=== PATIENT | male | born 2000 | race Caucasian/White ===

== ENCOUNTER 2021-04-21 15:07 | Emergency (ER) | payer BC ==
[2021-04-21 15:12] VITALS: BP 165/101; PULSE 96; RESP 16; TEMP 98.1
--- NOTE | 2021-04-21 15:41 | ED ---
Abdominal Pain HPI - General Chief Complaint: Abdominal Pain Stated Complaint: Abd pain Time Seen by Provider: 04/21/21 15:15 Source: patient Mode of arrival: ambulatory Limitations: no limitations - History of Present Illness Initial Comments: 21-year-old male presents to emergency department with a chief complaint of umbilical pain. Patient reports the pain has been gradually she severity for about 2 weeks. States he has developed gradual increase in erythema and region. However, he denies any discharge. States he feels a small mass whenever region is palpated. He denies any nausea vomiting diarrhea or constipation. Denies any fevers chills. - Related Data Previous Rx's Medication Instructions Recorded Cephalexin [Keflex] 500 mg PO Q6HR #40 cap 04/21/21 Allergies Allergy/AdvReac Type Severity Reaction Status Date / Time No Known Allergies Allergy Verified 04/21/21 15:12 Review of Systems ROS Statement: Those systems with pertinent positive or pertinent negative responses have been documented in the HPI. ROS Other: All systems not noted in ROS Statement are negative. Past Medical History Past Medical History: No Reported History History of Any Multi-Drug Resistant Organisms: None Reported Past Surgical History: No Surgical Hx Reported Past Psychological History: No Psychological Hx Reported Smoking Status: Never smoker Past Alcohol Use History: None Reported Past Drug Use History: None Reported General Exam Limitations: no limitations General appearance: alert, in no apparent distress Head exam: Present: atraumatic, normocephalic, normal inspection Eye exam: Present: normal appearance, PERRL, EOMI Pupils: Present: normal accommodation ENT exam: Present: normal exam, normal oropharynx, mucous membranes moist Neck exam: Present: normal inspection, full ROM. Absent: tenderness Respiratory exam: Present: normal lung sounds bilaterally. Absent: respiratory distress Cardiovascular Exam: Present: regular rate, normal rhythm, normal heart sounds. Absent: systolic murmur GI/Abdominal exam: Present: soft, tenderness (Tenderness around the umbilicus. Small surrounding erythema but no discharge. No palpable masses), normal bowel sounds. Absent: distended, guarding, rebound, rigid, organomegaly, mass, bruit, pulsatile mass, hernia Extremities exam: Present: normal inspection, full ROM, normal capillary refill. Absent: tenderness Back exam: Present: normal inspection, full ROM Neurological exam: Present: alert, oriented X3 Psychiatric exam: Present: normal affect, normal mood Skin exam: Present: warm, dry, intact, normal color Course Vital Signs 04/21/21 15:10 Temperature 98.1 F Pulse Rate 96 Respiratory 16 Rate Blood Pressure 165/101 O2 Sat by Pulse 100 Oximetry Medical Decision Making - Medical Decision Making 21-year-old female presenting to emergency Department and she will complain of pain at the umbilicus. Physical examination, patient appears to have developed cellulitis at the umbilicus. I will discharge her with Keflex. There has been no nausea vomiting diarrhea or constipation. Patient advised to return to emergency department if symptoms worsen. PCP follow-up. Case discussed with physician. Disposition Clinical Impression: Cellulitis of umbilicus Disposition: HOME SELF-CARE Condition: Stable Instructions (If sedation given, give patient instructions): Cellulitis (DC) Additional Instructions: Please return to the Emergency Department if symptoms worsen or any other concerns. Prescriptions: Cephalexin [Keflex] 500 mg PO Q6HR #40 cap Is patient prescribed a controlled substance at d/c from ED?: No Referrals: Aren Lira MD [Primary Care Provider] - 1-2 days Time of Disposition: 15:51
== END 2021-04-21 15:57 | disposition home or self-care (01) ==
LOC: EC 15:07
DX: L03.316 Cellulitis of umbilicus (principal)
CPT/HCPCS: 99283

== ENCOUNTER → 2022-09-08 | Outpatient (CLI) | payer BC ==
[2022-09-08 15:11] LABS: Basophils # (A) 0.04 X 10*3/uL (0.00-0.10); Basophils % (A) 0.5 %; Eosinophils # (A) 0.19 X 10*3/uL (0.04-0.35); Eosinophils % (A) 2.1 %; HCT 41.1 % (39.6-50.0); HGB 14.2 g/dL (13.0-17.0); Immature Grans, Automated 0.5 %; Lymphocytes % (A) 29.4 %; MCH 28.9 pg (27.0-32.0); MCHC 34.5 g/dL (32.0-37.0); MCV 83.7 fL (80.0-97.0); Mean Platelet Volume 9.4 fL (9.5-12.2); NRBC Per 100 WBC 0 /100 WBCS (0.0-0.0); Neutrophils # (A) 5.17 X 10*3/uL (1.80-7.70); Neutrophils % (A) 58.5 %; Platelet Count 274 X 10*3/uL (140-440); RBC 4.91 X 10*6/uL (4.40-5.60); RDW 11.9 % (11.5-14.5); WBC 8.84 X 10*3/uL (4.50-10.00)
== END | disposition home or self-care (01) ==
LOC: LABWHC1 09:51
PROVIDERS: ATTEND Podiatrist Foot & Ankle Surgery
DX: D64.9 Anemia, unspecified (principal)
CPT/HCPCS: 36415; 85025